=== PATIENT | male | born 1985 | race Caucasian/White ===

== ENCOUNTER 2016-11-08 09:54 | Emergency (ER) | payer MEDICARE, MEDICAID ==
[2016-11-08 10:11] VITALS: BP 131/71
--- NOTE | 2016-11-08 10:22 | UC ---
Respiratory Complaint HPI - HPI Summary HPI Summary: The patient comes in today for: 1. Cough: Onset: 5 weeks Palliative/provocative: He takes Mucinex which helps. Quality: Wheezy. Region: Lungs Severity: None. Time: Cough comes and goes. Associated symptoms: Asthma: Has not had. Fevers: None. Night sweats: Present Weight loss: None known Chest pain: None. Dyspnea: NOne. Previous lung disease: Last CXR: Unknown. He had a PPD done when he was in a alf in September which was normal. Cough: productive of yellow material. Rhinitis: Yellow Sinus pressure: None. * - History of Current Complaint Chief Complaint: UCGeneralIllness Stated Complaint: COUGH Time Seen by Provider: 11/08/16 10:03 Hx Obtained From: Patient - Allergies/Home Medications Allergies/Adverse Reactions: Allergies Allergy/AdvReac Type Severity Reaction Status Date / Time No Known Allergies Allergy Verified 11/08/16 10:11 PMH/Surg Hx/FS Hx/Imm Hx Previously Healthy: Yes Endocrine History Of: Denies: Diabetes, Thyroid Disease, Hyperthyroidism, Hypothyroidism, Dyslipidemia Cardiovascular History Of: Denies: Cardiac Disorders, Hypertension Respiratory History Of: Denies: COPD, Asthma, Bronchitis, Pneumonia, Pulmonary Embolism GI/ History Of: Denies: Gastroesophageal Reflux, Ulcer, Gastrointestinal Bleed, Gall Bladder Disease, Kidney Stones, Diverticulitis, Renal Disease, Urosepsis Neurological History Of: Denies: TIA, CVA, Dementia, Seizures, Migraine Psychological History Of: Reports: Anxiety, Depression Denies: Bipolar Disorder, Schizophrenia, Post Traumatic Stress Disorder Cancer History Of: Denies: Lung Cancer, Colorectal Cancer, Breast Cancer, Prostate Cancer, Cervical Cancer Other History Of: Negative For: HIV, Hepatitis B, Hepatitis C, Anticoagulant Therapy - Surgical History Surgical History: Yes Surgery Procedure, Year, and Place: appy - Family History Known Family History: Positive: Cardiac Disease, Hypertension - Social History Occupation: Unemployed Alcohol Use: None Substance Use Type: None Smoking Status (MU): Light Every Day Tobacco Smoker Type: Cigarettes Amount Used/How Often: 1/2 ppd--quit 2 days ago. Review of Systems Constitutional: Negative Skin: Negative Eyes: Negative ENT: Negative, Sore Throat Respiratory: Cough Cardiovascular: Negative Gastrointestinal: Negative Genitourinary: Negative All Other Systems Reviewed And Are Negative: Yes Physical Exam Triage Information Reviewed: Yes Appearance: Well-Appearing, No Pain Distress, Well-Nourished, Other: - He is coughing in the room and will have a prolonged cough at time, but brings up material. Vital Signs: Initial Vital Signs Temp 98.4 F 11/08/16 10:00 Pulse 80 11/08/16 10:00 Resp 18 11/08/16 10:00 BP 131/71 11/08/16 10:00 Pulse Ox 97 11/08/16 10:00 Vital Signs Reviewed: Yes Eyes: Positive: Conjunctiva Clear. Negative: Discharge ENT: Positive: Hearing grossly normal. Negative: Pharyngeal erythema, Nasal congestion, Nasal drainage, TM bulging, TM dull, TM red, Tonsillar swelling, Tonsillar exudate Dental: Negative: Gross Decay/Caries @, Dental Fracture @ Neck: Positive: Supple, Nontender, No Lymphadenopathy. Negative: Nuchal Rigidity Respiratory: Positive: Chest non-tender, Lungs clear, No respiratory distress, No accessory muscle use. Negative: Crackles, Rhonchi Cardiovascular: Positive: RRR, No Murmur Abdomen Description: Positive: Nontender, No Organomegaly, Soft. Negative: Distended, Guarding Musculoskeletal: Positive: Strength Intact, ROM Intact, No Edema Neurological: Positive: Alert, Muscle Tone Normal Psychological: Positive: Age Appropriate Behavior, Consolable Skin: Negative: rashes, breakdown UC Diagnostic Evaluation - Laboratory O2 Sat by Pulse Oximetry: 97 - Radiology Xray Interpretation: No Acute Changes Radiology Interpretation Completed By: Radiologist Respiratory Course/Dx - Differential Dx/Diagnosis Differential Diagnosis/HQI/PQRI: Bronchitis, Laryngitis, Sinusitis Provider Diagnoses: Cough, sinusitis, bronchitis Discharge - Discharge Plan Condition: Stable Disposition: HOME Patient Education Materials: Chronic Bronchitis (ED), Sinusitis (ED) Referrals: Luís Cano MD [Primary Care Provider] - 1 Week (Please see your primary care provider in a week to see how well you are doing. If you get worse, please be seen sooner in the ER or through us.)
--- NOTE | 2016-11-08 10:49 | RAD ---
INDICATION: Chronic cough. COMPARISON: There are no prior studies available for comparison. TECHNIQUE: Dual-energy PA and lateral views of the chest were obtained. FINDINGS: The heart is within normal limits in size. Mediastinal and hilar contours appear within normal limits. The lungs are clear. No pleural effusion is present. IMPRESSION: NO EVIDENCE FOR ACTIVE CARDIOPULMONARY DISEASE.
== END 2016-11-08 11:15 | disposition home or self-care (01) ==
LOC: UCEAST 09:54
DX: J32.9 Chronic sinusitis, unspecified (principal); R05 Cough; F41.9 Anxiety disorder, unspecified; F33.9 Major depressive disorder, recurrent, unspecified; F17.210 Nicotine dependence, cigarettes, uncomplicated; J40 Bronchitis, not specified as acute or chronic
CPT/HCPCS: 71020; 99202; G0463

== ENCOUNTER 2016-11-28 14:54 | Emergency (ER) | payer MEDICARE, MEDICAID ==
[2016-11-28 15:12] VITALS: BP 110/66
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
[2016-12-01 16:43] LABS: Rapid HIV INT CONT QC Line Present
[2016-12-01 16:44] LABS: Rapid HIV Kit Lot# F308002
== END 2016-11-28 16:01 | disposition home or self-care (01) ==
LOC: UCEAST 14:54
DX: S71.132A Puncture wound without foreign body, left thigh, initial encounter (principal); W46.1XXA Contact with contaminated hypodermic needle, initial encounter; Y93.9 Activity, unspecified; Y92.9 Unspecified place or not applicable; Z11.4 Encounter for screening for human immunodeficiency virus [HIV]; F41.8 Other specified anxiety disorders; F17.210 Nicotine dependence, cigarettes, uncomplicated
CPT/HCPCS: 36415; 86703; 86706; 86803; 87340; 99211; G0463

== ENCOUNTER 2018-04-02 13:44 | Emergency (ER) | payer MEDICAID, MEDICARE ==
--- NOTE | 2018-04-02 16:05 | ED ---
Psychiatric Complaint - HPI Summary HPI Summary: This patient is a 32 year old M presenting to [facility] with a chief complaint of a possible lung infection and anxiety. Pt states he got sick at the end of february and that illness has persistent since then. The patient rates the pain 1/10 in severity. Patient reports productive cough, rhinorrhea, chest congestion, and right knee pain. Patient denies SI and HI. Pt is anxious because he lost his wallet and phone with all the picture of his son in it. [facility] and that [facility]. Pt states he is homeless and has not drank or used drugs today. He has hx of mental health issues. - History Of Current Complaint Chief Complaint: EDMentalHealth Time Seen by Provider: 04/02/18 15:28 Hx Obtained From: Patient Onset/Duration: Still Present Timing: Constant Severity Initially: Moderate Severity Currently: Moderate Character: Depressed Aggravating Factor(s): Recent Stress Related History: Positive For: Prior Psychiatric Issues Has Suicidal: Denies: Thoughts, With A Plan Has Homicidal: Denies: Thoughts, With A Plan - Allergies/Home Medications Allergies/Adverse Reactions: Allergies Allergy/AdvReac Type Severity Reaction Status Date / Time No Known Allergies Allergy Verified 04/02/18 14:03 PMH/Surg Hx/FS Hx/Imm Hx Endocrine/Hematology History: Denies: Hx Anticoagulant Therapy, Hx Diabetes, Hx Thyroid Disease Cardiovascular History: Denies: Hx Hypertension Respiratory History: Denies: Hx Asthma, Hx Chronic Obstructive Pulmonary Disease (COPD), Hx Lung Cancer, Hx Pneumonia, Hx Pulmonary Embolism GI History: Denies: Hx Gall Bladder Disease, Hx Gastrointestinal Bleed, Hx Ulcer, Hx Urosepsis History: Denies: Hx Kidney Stones, Hx Renal Disease Neurological History: Denies: Hx Dementia, Hx Migraine, Hx Seizures, Hx Transient Ischemic Attacks (TIA) Psychiatric History: Reports: Hx Anxiety, Hx Depression Denies: Hx Schizophrenia, Hx Bipolar Disorder - Surgical History Surgery Procedure, Year, and Place: appy Infectious Disease History: No Infectious Disease History: Denies: Hx Clostridium Difficile, Hx Hepatitis, Hx Human Immunodeficiency Virus (HIV), Hx of Known/Suspected MRSA, Traveled Outside the [place] in Last 30 Days - Family History Known Family History: Positive: Cardiac Disease, Hypertension - Social History Alcohol Use: None Substance Use Type: Reports: None Smoking Status (MU): Light Every Day Tobacco Smoker Type: Cigars Amount Used/How Often: 1 cigar/day Review of Systems Negative: Fever Positive: Nasal Discharge Positive: Cough, Other - chest congestion Positive: Other - right knee pain Psychological: Other - NEGATIVE SI and HI All Other Systems Reviewed And Are Negative: Yes Physical Exam - Summary Physical Exam Summary: Appearance: Well appearing, no pain distress Skin: warm, dry, reflects adequate perfusion Head/face: normal Eyes: EOMI, RAND ENT: posterior pharynx mucus Neck: supple, non-tender Respiratory: CTA, harsh cough Cardiovascular: RRR, pulses symmetrical Abdomen: non-tender, soft Bowel Sounds: present Musculoskeletal: normal, strength/ROM intact Neuro: normal, sensory motor intact, A&Ox3 Triage Information Reviewed: Yes Vital Signs On Initial Exam: Initial Vitals Temp Pulse Resp BP Pulse Ox 98.4 F 85 16 138/86 96 04/02/18 13:58 04/02/18 13:58 04/02/18 13:58 04/02/18 13:58 04/02/18 13:58 Vital Signs Reviewed: Yes Diagnostics - Vital Signs Vital Signs Temp Pulse Resp BP Pulse Ox 04/02/18 13:58 98.4 F 85 16 138/86 96 - Laboratory Lab Statement: Any lab studies that have been ordered have been reviewed, and results considered in the medical decision making process. - Radiology CXR Xray Interpretation: No Acute Changes Radiology Interpretation Completed By: Radiologist - IMPRESSION: No active cardiopulmonary disease is noted. ED Physician has reviewed this report Course/Dx - Course Course Of Treatment: Homeless gentleman with history of URI symptoms and also anxiety. No alcohol in his system. He had no suicidal or homicidal ideation. A crisis evaluation was performed and outpatient therapies were recommended. He was given all appropriate paperwork by crisis. He is also treated for URI/ sinusitis and will be provided emergency fill prescriptions for albuterol, Zithromax and Vistaril for his anxiety. - Differential Dx/Clinical Impression Differential Diagnosis/HQI/PQRI: Positive: Depression, Suicidal Ideation, Suicidal Gesture, Other - URI, sinusitis, pneumonia Provider Diagnosis: Depression, Anxiety, Sinusitis Discharge - Sign-Out/Discharge Documenting (check all that apply): Patient Departure - discharge - Discharge Plan Condition: Improved Disposition: HOME Prescriptions: Albuterol HFA INHALER* [Ventolin HFA Inhaler*] 1 - 2 puff INH Q4H PRN #1 mdi PRN Reason: cough/short of breath Azithromycin TAB* [Zithromax TAB (Z-DAFNE) 250 mg #6 tabs] 2 tab PO .TODAY, THEN 1 DAILY #1 dafne hydrOXYzine pamoate [Vistaril] 50 mg PO TID PRN #30 capsule PRN Reason: Anxiety Patient Education Materials: Sinusitis (ED), Anxiety (ED) Forms: *Work Release Referrals: [facility] [Outside] Yousuf Perez MD [Primary Care Provider] - Additional Instructions: Call your doctor first thing in the morning to schedule follow-up for your illness. Follow[facility]up with [facility] as per crisis evaluation recommendation. Return with fever, difficulty breathing, worse, new symptoms or other concerns. - Billing Disposition and Condition Condition: IMPROVED Disposition: Home - Attestation Statements Document Initiated by Calliibe: Yes Documenting Scribe: Isaac Rdz Provider For Whom Calliibe is Documenting (Include Credential): Stephon Rizzo MD Scribe Attestation: Isaac Matt , scribed for Stephon Rizzo MD on 04/02/18 at 1803. Scribe Documentation Reviewed: Yes Provider Attestation: The documentation as recorded by the Isaac walden accurately reflects the service I personally performed and the decisions made by me, Stephon Rizzo MD
[2018-04-02] MEDS ORDERED: Albuterol/Ipratropium NEB.SOL* Albuterol 2.5 MG/Ipratropium 0.5 MG 3 ML INH ONE (16:11)
[2018-04-02] MEDS ORDERED: LORazepam TAB(*) 1 MG PO ONE (16:11)
--- NOTE | 2018-04-02 17:20 | RAD ---
Indication: Cough. 2 views of the chest including dual energy PA views are reviewed and compared to previous exam dated November 08, 2016. No mediastinal shift is noted. Heart is of normal size and configuration. Lung sharma appear clear. No pleural fluid, pneumonia or pneumothorax is noted. The bony structures are grossly unremarkable. No changes noted since prior exam. IMPRESSION: No active cardiopulmonary disease is noted.
[2018-04-02 18:52] VITALS: BP 148/78
== END 2018-04-02 18:00 | disposition home or self-care (01) ==
LOC: ED 13:44
DX: F32.9 Major depressive disorder, single episode, unspecified (principal); F41.9 Anxiety disorder, unspecified; J32.9 Chronic sinusitis, unspecified; F17.290 Nicotine dependence, other tobacco product, uncomplicated
CPT/HCPCS: 71046; 99283; A9270-GY

== ENCOUNTER 2018-06-18 17:44 | Emergency (ER) | payer SELFPAY ==
--- NOTE | 2018-06-18 18:14 | ED ---
Skin Complaint - HPI Summary HPI Summary: The pt is a 32 y/o male presenting to [facility] c/o a large fluid pocket on the sacral region spreading to the lower R back since 3 days ago. He notes hardening and redness at the site, hot and cold sweats, palpitations, and difficulty sitting. He denies constipation. He notes pain rated 7/10 in severity. Home Medications Medication Instructions Recorded Confirmed Type Albuterol HFA INHALER* [Ventolin 1 - 2 puff INH Q4H PRN #1 mdi 04/02/18 Rx HFA Inhaler*] Azithromycin TAB* [Zithromax TAB 2 tab PO .TODAY, THEN 1 DAILY #1 04/02/18 Rx (Z-DAFNE) 250 mg #6 tabs] dafne hydrOXYzine pamoate [Vistaril] 50 mg PO TID PRN #30 capsule 04/02/18 Rx - History of Current Complaint Chief Complaint: EDGeneral Time Seen by Provider: 06/18/18 18:07 Stated Complaint: LUMP ON LOWER BACK Hx Obtained From: Patient Onset/Duration: Started Days Ago - 3 days, Still Present, Worse Since - Today Onset Severity: Moderate Current Severity: Moderate Pain Intensity: 7 Pain Scale Used: 0-10 Numeric Skin Location: Other: - sacral region Aggravating Symptom(s): Nothing Alleviating Symptom(s): Nothing - Allergy/Home Medications Allergies/Adverse Reactions: Allergies Allergy/AdvReac Type Severity Reaction Status Date / Time No Known Allergies Allergy Verified 04/02/18 14:03 PMH/Surg Hx/FS Hx/Imm Hx Previously Healthy: No Endocrine/Hematology History: Denies: Hx Anticoagulant Therapy, Hx Diabetes, Hx Thyroid Disease Cardiovascular History: Denies: Hx Hypertension Respiratory History: Denies: Hx Asthma, Hx Chronic Obstructive Pulmonary Disease (COPD), Hx Lung Cancer, Hx Pneumonia, Hx Pulmonary Embolism GI History: Denies: Hx Gall Bladder Disease, Hx Gastrointestinal Bleed, Hx Ulcer, Hx Urosepsis History: Denies: Hx Kidney Stones, Hx Renal Disease Neurological History: Denies: Hx Dementia, Hx Migraine, Hx Seizures, Hx Transient Ischemic Attacks (TIA) Psychiatric History: Reports: Hx Anxiety, Hx Depression Denies: Hx Schizophrenia, Hx Bipolar Disorder - Cancer History Cancer Type, Location and Year: None reported - Surgical History Surgery Procedure, Year, and Place: Appendectomy Infectious Disease History: No Infectious Disease History: Denies: Hx Clostridium Difficile, Hx Hepatitis, Hx Human Immunodeficiency Virus (HIV), Hx of Known/Suspected MRSA, Traveled Outside the [place] in Last 30 Days - Family History Known Family History: Positive: Cardiac Disease, Hypertension - Social History Occupation: Unemployed Lives: With Family Alcohol Use: None Substance Use Type: Reports: None Substance Use Comment - Amount & Last Used: Crack cocaine Smoking Status (MU): Light Every Day Tobacco Smoker Type: Cigars Amount Used/How Often: 1 cigar/day Review of Systems Constitutional: Other - Positive: Difficulty sitting Positive: Skin Diaphoresis - [place] cold sweats Positive: Palpitations Gastrointestinal: Negative - Constipation Positive: Other - large fluid pocket on the sacral region spreading to the lower R back, redness and swelling All Other Systems Reviewed And Are Negative: Yes Physical Exam - Summary Physical Exam Summary: Appearance: The patient is well-nourished in no acute distress and in no acute pain. Skin: There is a R sided pilonidal cyst. It is indurated, erythematous, tender and without flactuance. HEENT: The head is normocephalic and atraumatic. The pupils are equal and reactive. The conjunctivae are clear and without drainage. Nares are patent and without drainage. Mouth reveals moist mucous membranes and the throat is without erythema and exudate. The external ears are intact. The ear canals are patent and without drainage. The tympanic membranes are intact. Neck: The neck is supple with full range of motion and non-tender. There are no carotid bruits. There is no neck vein distension. Respiratory: Chest is non-tender. Lungs are clear to auscultation and breath sounds are symmetrical and equal. Cardiovascular: Heart is regular rate and rhythm. There is no murmur or rub auscultated. There is no peripheral edema and pulses are symmetrical and equal. Abdomen: The abdomen is soft and non-tender. There are normal bowel sounds heard in all four quadrants and there is no organomegaly palpated. Musculoskeletal: There is no back tenderness noted. Extremities are non-tender with full range of motion. There is good capillary refill. There is no peripheral edema or calf tenderness elicited. Neurological: Patient is alert and oriented to person, place and time. The patient has symmetrical motor strength in all four extremities. Cranial nerves are grossly intact. Deep tendon reflexes are symmetrical and equal in all four extremities. Psychiatric: The patient has an appropriate affect and does not exhibit any anxiety or depression. Triage Information Reviewed: Yes Vital Signs On Initial Exam: Initial Vitals Temp Pulse Resp BP Pulse Ox 98.0 F 114 18 132/87 99 06/18/18 17:55 06/18/18 17:55 06/18/18 17:55 06/18/18 17:55 06/18/18 17:55 Vital Signs Reviewed: Yes Procedures - Incision and Drainage Right Buttocks Anesthesia: Lidocaine Instrument(s): Scalpel Packing: Gauze - 07/24" [employer] [facility] - Vital Signs Vital Signs Temp Pulse Resp BP Pulse Ox 06/18/18 17:55 98.0 F 114 18 132/87 99 - Laboratory Lab Statement: Any lab studies that have been ordered have been reviewed, and results considered in the medical decision making process. Course/Dx - Course Course Of Treatment: Mr. Hernández presented to the emergency department with several days of a painful area on his right buttock. He can no longer sit comfortably or move very well. On evaluation he was noted to be stable vitals, nontoxic in appearance but uncomfortable. He clearly had a pilonidal abscess on the right and this was drained of about 7 cc of thick discharge which was sent to the lab. A small amount of packing was placed. He has a great deal of concern about the cost and I recommended that packing would probably fall out and that was okay or could be pulled out in a day or 2. If he starts getting worse he can be seen again. - Diagnoses Provider Diagnoses: Pilonidal abscess Discharge - Sign-Out/Discharge Documenting (check all that apply): Patient Departure - DC - Discharge Plan Condition: Improved Disposition: HOME Prescriptions: Clindamycin Cap(NF) [Clindamycin Cap 300 mg Cap(NF)] 300 mg PO TID #12 cap Clindamycin Cap(NF) [Clindamycin Cap 300 mg Cap(NF)] 300 mg PO TID #12 cap HYDROcodone/ACETAMIN 5-325 MG* [Chappells 5-325 TAB*] 1 tab PO Q6H PRN #20 tab MDD 4 PRN Reason: Pain HYDROcodone/ACETAMIN 5-325 MG* [[place]appells 5-325 TAB*] 1 tab PO Q6H PRN #20 tab MDD 4 PRN Reason: Pain Patient Education Materials: Pilonidal Cyst (ED) Forms: *Work Release Referrals: Yousuf Perez MD [Primary Care Provider] - Additional Instructions: The packing can be removed in 1-2 days Follow up with your PCP in 2 days Return to ED for any new or worsening symptoms - Billing Disposition and Condition Condition: IMPROVED Disposition: Home - Attestation Statements Document Initiated by Calliibwilliam: Yes Documenting Scribe: Ashia Alcantara Provider For Whom Aida is Documenting (Include Credential): Dr. Hugh Salas MD Scribe Attestation: Ashia Matt , scribed for Dr. Hugh Salas MD on 06/18/18 at 2042. Scribe Documentation Reviewed: Yes Provider Attestation: The documentation as recorded by the Ashia walden accurately reflects the service I personally performed and the decisions made by me, Dr. Hugh Salas MD Status of Scribe Document: Viewed
[2018-06-18] MEDS ORDERED: Ibuprofen TAB* 600 MG PO ONE (18:26)
[2018-06-18 20:39] VITALS: BP 146/80
--- NOTE | 2018-06-19 16:53 | ED ---
Progress - Progress Note Progress Note: Patient's wound cultures positive for MRSA and staph aureus. Patient was placed on clindamycin. This treatment is appropriate this time. Final results pending. Course/Dx - Course Course Of Treatment: Mr. Hernández presented to the emergency department with several days of a painful area on his right buttock. He can no longer sit comfortably or move very well. On evaluation he was noted to be stable vitals, nontoxic in appearance but uncomfortable. He clearly had a pilonidal abscess on the right and this was drained of about 7 cc of thick discharge which was sent to the lab. A small amount of packing was placed. He has a great deal of concern about the cost and I recommended that packing would probably fall out and that was okay or could be pulled out in a day or 2. If he starts getting worse he can be seen again. - Diagnoses Provider Diagnoses: Pilonidal abscess Discharge - Sign-Out/Discharge Documenting (check all that apply): Post-Discharge Follow Up - Discharge Plan Condition: Improved Disposition: HOME Prescriptions: Clindamycin Cap(NF) [Clindamycin Cap 300 mg Cap(NF)] 300 mg PO TID #12 cap Clindamycin Cap(NF) [Clindamycin Cap 300 mg Cap(NF)] 300 mg PO TID #12 cap HYDROcodone/ACETAMIN 5-325 MG* [[place] 5-325 TAB*] 1 tab PO Q6H PRN #20 tab MDD 4 PRN Reason: Pain HYDROcodone/ACETAMIN 5-325 MG* [[place] 5-325 TAB*] 1 tab PO Q6H PRN #20 tab MDD 4 PRN Reason: Pain Patient Education Materials: Pilonidal Cyst (ED) Forms: *Work Release Referrals: Yousuf Perez MD [Primary Care Provider] - Additional Instructions: The packing can be removed in 1-2 days Follow up with your PCP in 2 days Return to ED for any new or worsening symptoms - Billing Disposition and Condition Condition: IMPROVED Disposition: Home
--- NOTE | 2018-06-21 05:50 | PN ---
Progress Note - Progress Note Date of Service: 07/18/18 Note: Pt. seen in ED 06/18 for abscess. Was placed on Clindamycin after I and D. Final wound culture today is growing MRSA susceptible to clinda. No change in treatment needed at this time.
== END 2018-06-18 20:39 | disposition home or self-care (01) ==
LOC: ED 17:44
DX: L05.01 Pilonidal cyst with abscess (principal); B95.62 Methicillin resistant Staphylococcus aureus infection as the cause of diseases classified elsewhere; F17.290 Nicotine dependence, other tobacco product, uncomplicated
CPT/HCPCS: 10080; 87070; 87077; 87186; 87205; 87640; 87641; 99282; A9270-GY

== ENCOUNTER 2018-06-27 16:44 | Emergency (ER) | payer SELFPAY ==
[2018-06-27] MEDS ORDERED: Clindamycin 600 MG IVPREMIX(* 600 MG/50 ML SDV IV ONE (18:06)
[2018-06-27] MEDS ORDERED: Ketorolac INJ* 30 MG/ML 1 ML VIAL IV PUSH ONE (18:26)
[2018-06-27 18:30] LABS: ABS Basophils 0.1 10^3/ul (0-0.2); ABS Eosinophils 0.1 10^3/ul (0-0.6); ABS Lymphocytes 1.4 10^3/ul (1.0-4.8); ABS Monocytes 0.6 10^3/ul (0-0.8); ABS Neutrophils 10.2 10^3/ul (1.5-7.7); ABS Nucleated RBC 0 10^3/ul; Hematocrit 44 % (42-52); Hemoglobin 14.8 g/dl (14.0-18.0); Lymphocyte % 11.1 %; Mean Corpuscular HGB Conc 34 g/dl (31-36); Mean Corpuscular Hemoglobin 29 pg (27-31); Mean Corpuscular Volume 87 fL (80-94); Mean Platelet Volume 8.8 fL (7.4-10.4); Nucleated Red Blood Cells % 0; Platelet Count 246 10^3/ul (150-450); Red Blood Count 5.03 10^6/ul (4.00-5.40); Red Cell Distribution Width 14 % (10.5-15); White Blood Count 12.4 10^3/ul (3.5-10.8)
[2018-06-27 18:38] LABS: INR 0.97 (0.77-1.02)
[2018-06-27 18:46] LABS: EGFR Non-African American 108.1 (>60)
[2018-06-27] MEDS ORDERED: PREP PO ONE (19:56)
[2018-06-27] MEDS ORDERED: I buprofen 600 MG #6 TAB PREPK 600 MG TAB PO ONE (19:56)
[2018-06-27] MEDS ORDERED: [UNRECOGNIZED DRUG - OTHER] PO ONE (19:56)
--- NOTE | 2018-06-27 20:41 | ED ---
Skin Complaint - HPI Summary HPI Summary: Pt presents w/ a second gluteal infection, this time on Lt cheek. Painful to sleep on it. Feels tired but denies raz fever, chills, nausea, vomiting, diarrhea. Has noticed smaller scabbed bumps in the area as well - moist, oozing but no raz drainage. Denies radiating sx into LE's. Pt was also seen on 06/18 for a Rt gluteal abscess. This was incised and drained and packed. Cx revealed MRSA and Staph aureus sensitive to clindamycin which was rx'd for the pt however he has not taken this as he never went to pharmacy. He was given an urgent RX form. He struggles with anxiety which may have impeded his follow through on picking up his rx. GF is here w/him today. Reports he's homeless and lives w/ her. She is panicked about his dx of MRSA as she reports she had this many years ago and is worried she gave it to him and he will leave her. Pt is concerned about learning he has MRSA but has not expressed that he will leave GF as a result. Pt's GF was asked to refrain from projecting her anxiety onto pt and she agrees. - History of Current Complaint Chief Complaint: EDRashSkinAbscess Time Seen by Provider: 06/27/18 17:35 Stated Complaint: ABSCESS Hx Obtained From: Patient Pain Intensity: 8 - Allergy/Home Medications Allergies/Adverse Reactions: Allergies Allergy/AdvReac Type Severity Reaction Status Date / Time No Known Allergies Allergy Verified 06/27/18 16:49 PMH/Surg Hx/FS Hx/Imm Hx Endocrine/Hematology History: Denies: Hx Anticoagulant Therapy, Hx Diabetes, Hx Thyroid Disease Cardiovascular History: Denies: Hx Hypertension Respiratory History: Denies: Hx Asthma, Hx Chronic Obstructive Pulmonary Disease (COPD), Hx Lung Cancer, Hx Pneumonia, Hx Pulmonary Embolism GI History: Denies: Hx Gall Bladder Disease, Hx Gastrointestinal Bleed, Hx Ulcer, Hx Urosepsis History: Denies: Hx Kidney Stones, Hx Renal Disease Neurological History: Denies: Hx Dementia, Hx Migraine, Hx Seizures, Hx Transient Ischemic Attacks (TIA) Psychiatric History: Reports: Hx Anxiety, Hx Depression Denies: Hx Schizophrenia, Hx Bipolar Disorder - Cancer History Cancer Type, Location and Year: None reported - Surgical History Surgery Procedure, Year, and Place: Appendectomy Infectious Disease History: No Infectious Disease History: Reports: Hx of Known/Suspected MRSA Denies: Hx Clostridium Difficile, Hx Hepatitis, Hx Human Immunodeficiency Virus (HIV), Traveled Outside the [place] in Last 30 Days - Family History Known Family History: Positive: Cardiac Disease, Hypertension - Social History Occupation: Employed Full-time Lives: Dormitory/Roommates - technicaly homeless but lives w/ current GF Alcohol Use: Rare Substance Use Type: Reports: None Substance Use Comment - Amount & Last Used: hx Crack cocaine Smoking Status (MU): Heavy Every Day Tobacco Smoker Type: Cigars Amount Used/How Often: 1 cigar/day Review of Systems Positive: Fatigue. Negative: Fever, Chills Eyes: Negative Negative: Chest Pain Negative: Shortness Of Breath Gastrointestinal: Negative Positive: no symptoms reported Musculoskeletal: Negative Positive: Rash Neurological: Negative Positive: Anxious All Other Systems Reviewed And Are Negative: Yes Physical Exam Triage Information Reviewed: Yes Vital Signs On Initial Exam: Initial Vitals Temp Pulse Resp BP Pulse Ox 97.3 F 114 16 129/87 100 06/27/18 16:47 06/27/18 16:47 06/27/18 16:47 06/27/18 16:47 06/27/18 16:47 Vital Signs Reviewed: Yes Appearance: Positive: Well-Nourished - clothed appropriately; lacking hygiene to a mild degree - subtly disheveled, Pain Distress - appears to be in mild to moderate distress which may be a combination of pain/anxiety Skin: Positive: Warm, Skin Color Reflects Adequate Perfusion - 4cm round area of indurated, tender, oozing scabbed tissue over Lt gluteal region w/ pustules - no bleeding, no drainage w/ pressure- appears isolated to this area; Rt previously opened area appears to be healed - small linear pink scar from previous I&D - no erythema, no fever to touch, skin clear, NTTP Eyes: Positive: EOMI, Conjunctiva Clear ENT: Positive: Pharynx normal - mucosa moist Respiratory/Lung Sounds: Positive: Breath Sounds Present Cardiovascular: Positive: Normal, S1, S2. Negative: Murmur, Rub, Leg Edema Left , Leg Edema Right Musculoskeletal: Positive: Normal, Strength/ROM Intact - lumbar spine and LE's WNL Neurological: Positive: Normal, Sensory/Motor Intact, Alert, Oriented to Person Place, Time, CN Intact II-III Psychiatric: Positive: Anxious - but consolable, polite, cooperative - [place] Coma Scale Best Eye Response: 4 - Spontaneous Best Motor Response: 6 - Obeys Commands Best Verbal Response: 5 - Oriented Coma Scale Total: 15 Procedures - Incision and Drainage Left Buttocks Anesthesia: Local, Lidocaine - 1% Instrument(s): Scalpel - #11 - minimal purulent drainage despite hemostat investigation - loculated, firm/indurated - minimal blood loss; irrigated w/ sterile saline Packing: Gauze - 1/4" plain (1cm) - difficult to pack d/t lack of pocket - tissue still firm and intact; covered with AB dressing - pt tolerated well Diagnostics - Vital Signs Vital Signs Temp Pulse Resp BP Pulse Ox 06/27/18 18:06 98.5 F 80 16 06/27/18 16:47 97.3 F 114 16 129/87 100 - Laboratory Lab Results: Lab Results 06/27/18 06/27/18 06/27/18 Range/Units 18:22 18:22 18:22 WBC 12.4 H (3.5-10.8) 10^3/ul RBC 5.03 (4.00-5.40) 10^6/ul Hgb 14.8 (14.0-18.0) g/dl Hct 44 (42-52) % MCV 87 (80-94) fL MCH 29 (27-31) pg MCHC 34 (31-36) g/dl RDW 14 (10.5-15) % Plt Count 246 (150-450) 10^3/ul MPV 8.8 (7.4-10.4) fL Neut % (Auto) 82.3 % Lymph % (Auto) 11.1 % [place] % (Auto) 5.1 % Eos % (Auto) 1.0 % Baso % (Auto) 0.5 % Absolute Neuts (auto) 10.2 H (1.5-7.7) 10^3/ul Absolute Lymphs (auto) 1.4 (1.0-4.8) 10^3/ul Absolute Monos (auto) 0.6 (0-0.8) 10^3/ul Absolute Eos (auto) 0.1 (0-0.6) 10^3/ul Absolute Basos (auto) 0.1 (0-0.2) 10^3/ul Absolute Nucleated RBC 0 10^3/ul Nucleated RBC % 0 INR (Anticoag Therapy) 0.97 (0.77-1.02) APTT 32.0 (26.0-36.3) seconds Sodium 138 (135-145) mmol/L Potassium 3.9 (3.5-5.0) mmol/L Chloride 103 (101-111) mmol/L Carbon Dioxide 29 (22-32) mmol/L Anion Gap 6 (2-11) mmol/L BUN 9 (6-24) mg/dL Creatinine 0.83 (0.67-1.17) mg/dL Est GFR ( Amer) 130.8 (>60) Est GFR (Non-Af Amer) 108.1 (>60) BUN/Creatinine Ratio 10.8 (8-20) Glucose 87 (70-100) mg/dL Lactic Acid (0.5-2.0) mmol/L Calcium 9.3 (8.6-10.3) mg/dL Total Bilirubin 0.50 (0.2-1.0) mg/dL AST 10 L (13-39) U/L ALT 9 (7-52) U/L Alkaline Phosphatase 55 (34-104) U/L C-Reactive Protein 12.92 H (<8.01) mg/L Total Protein 6.9 (6.4-8.9) g/dL Albumin 4.3 (3.2-5.2) g/dL Globulin 2.6 (2-4) g/dL Albumin/Globulin Ratio 1.7 (1-3) 06/27/18 Range/Units 18:22 WBC (3.5-10.8) 10^3/ul RBC (4.00-5.40) 10^6/ul Hgb (14.0-18.0) g/dl Hct (42-52) % MCV (80-94) fL MCH (27-31) pg MCHC (31-36) g/dl RDW (10.5-15) % Plt Count (150-450) 10^3/ul MPV (7.4-10.4) fL Neut % (Auto) % Lymph % (Auto) % [place] % (Auto) % Eos % (Auto) % Baso % (Auto) % Absolute Neuts (auto) (1.5-7.7) 10^3/ul Absolute Lymphs (auto) (1.0-4.8) 10^3/ul Absolute Monos (auto) (0-0.8) 10^3/ul Absolute Eos (auto) (0-0.6) 10^3/ul Absolute Basos (auto) (0-0.2) 10^3/ul Absolute Nucleated RBC 10^3/ul Nucleated RBC % INR (Anticoag Therapy) (0.77-1.02) APTT (26.0-36.3) seconds Sodium (135-145) mmol/L Potassium (3.5-5.0) mmol/L Chloride (101-111) mmol/L Carbon Dioxide (22-32) mmol/L Anion Gap (2-11) mmol/L BUN (6-24) mg/dL Creatinine (0.67-1.17) mg/dL Est GFR ( Amer) (>60) Est GFR (Non-Af Amer) (>60) BUN/Creatinine Ratio (8-20) Glucose (70-100) mg/dL Lactic Acid 1.2 (0.5-2.0) mmol/L Calcium (8.6-10.3) mg/dL Total Bilirubin (0.2-1.0) mg/dL AST (13-39) U/L ALT (7-52) U/L Alkaline Phosphatase (34-104) U/L C-Reactive Protein (<8.01) mg/L Total Protein (6.4-8.9) g/dL Albumin (3.2-5.2) g/dL Globulin (2-4) g/dL Albumin/Globulin Ratio (1-3) Result Diagrams: 06/27/18 18:22 06/27/18 18:22 Lab Statement: Any lab studies that have been ordered have been reviewed, and results considered in the medical decision making process. Re-Evaluation - Re-Evaluation First Eval Change: Improved Course/Dx - Course Course Of Treatment: Explained importance of taking anbx - given 1st dose here tonight via IV given his labs and hx. Given another urgent RX form and explained [facility] pharmacy is on bus route - also that he or anyone else could pick these meds up for him if logistics were an issue. He voices understanding and agrees w/ plan - voices understanding the risks of not taking clindamycin and following up as directed. Labs reveal what appears to be mild to moderate infection which I believe based on his clinical presentation (ie. does not meet SIRS Criteria, looks well considering) may be tx'd outpt as long as has close f/u which he arees to f/u w/ Jordy Wong. He was also adamant early on in visit that he had to work tomorrow no matter what - does not want to lose his job as he's "homeless" and trying to rebuild. No SI or HI expressed throughout course of care. - Diagnoses Provider Diagnoses: Buttock wound, MRSA (methicillin resistant staph aureus) culture positive Discharge - Sign-Out/Discharge Documenting (check all that apply): Patient Departure - Discharge Plan Condition: Stable Disposition: HOME Prescriptions: Clindamycin HCl 300 mg PO TID #30 capsule HYDROcodone/ACETAMIN 5-325 MG* [[place] 5-325 TAB*] 1 tab PO Q6H PRN #20 tab MDD 4 PRN Reason: Pain Ibuprofen TAB* [Motrin TAB* 600 MG] 600 mg PO Q6H PRN #20 tab PRN Reason: Pain Patient Education Materials: MRSA (Methicillin-Resistant Staphylococcus Aureus ) (ED), Abscess (ED), Incision and Drainage (ED) Referrals: [facility] [Outside] Additional Instructions: Keep area clean and covered to allow dressing to catch drainage After 2 days, you may remove packing or it may fall out on its own Wash this area in the shower daily with soap and water - rinse well and pat dry then cover with fresh dry gauze dressing to catch additional drainage, aid in healing Follow-up with [facility] on Friday - call Friday to schedule an appointment. Complete antibiotics as directed - you were given a small starter pack here but need to get additional medications from the pharmacy to prevent spread or worsening of infection. Take pain medications as directed as well. All medications have been sent to [facility] - take your green sheet for free medication fill when you go - give to pharmacy. *IF YOU DEVELOP FEVER, CHILLS, NAUSEA, VOMITING, DIARRHEA, WORSENING OF YOUR WOUND SYMPTOMS, RETURN TO THE ED - Billing Disposition and Condition Condition: STABLE Disposition: Home
[2018-06-27 20:47] VITALS: BP 104/83
== END 2018-06-27 20:50 | disposition home or self-care (01) ==
LOC: ED 16:44
DX: S31.819A Unspecified open wound of right buttock, initial encounter (principal); B95.62 Methicillin resistant Staphylococcus aureus infection as the cause of diseases classified elsewhere; X58.XXXA Exposure to other specified factors, initial encounter; Y92.9 Unspecified place or not applicable; F17.290 Nicotine dependence, other tobacco product, uncomplicated
CPT/HCPCS: 10060; 36415; 80053; 83605; 85025; 85610; 85730; 86140; 87040; 96361; 96374; 99282; A9270-GY; J1885

== ENCOUNTER 2018-12-05 19:16 | Emergency (ER) | payer SELFPAY ==
[2018-12-05] MEDS ORDERED: Penicillin VK TAB* 250 MG PO ONE (19:41)
[2018-12-05] MEDS ORDERED: Ibuprofen TAB* 600 MG PO ONE (19:41)
--- NOTE | 2018-12-05 19:41 | ED ---
Throat Pain/Nasal Congestion - HPI Summary HPI Summary: 32 year old male presents with dental pain for the past week. He states that he cracked his tooth a year ago but has been gradually loosing parts of his teeth over the past week. He has been having increasing pain. no fever. no chest pain. has had pain into his jaw and did have swelling there yesterday that has resolved. states has felt short of breath at times but not currently. pain is worst with hot and cold items. - History of Current Complaint Chief Complaint: EDDentalPain Time Seen by Provider: 12/05/18 19:29 - Allergies/Home Medications Allergies/Adverse Reactions: Allergies Allergy/AdvReac Type Severity Reaction Status Date / Time No Known Allergies Allergy Verified 06/27/18 16:49 PMH/Surg Hx/FS Hx/Imm Hx Endocrine/Hematology History: Denies: Hx Anticoagulant Therapy, Hx Diabetes, Hx Thyroid Disease Cardiovascular History: Denies: Hx Hypertension Respiratory History: Denies: Hx Asthma, Hx Chronic Obstructive Pulmonary Disease (COPD), Hx Lung Cancer, Hx Pneumonia, Hx Pulmonary Embolism GI History: Denies: Hx Gall Bladder Disease, Hx Gastrointestinal Bleed, Hx Ulcer, Hx Urosepsis History: Denies: Hx Kidney Stones, Hx Renal Disease Neurological History: Denies: Hx Dementia, Hx Migraine, Hx Seizures, Hx Transient Ischemic Attacks (TIA) Psychiatric History: Reports: Hx Anxiety, Hx Depression Denies: Hx Schizophrenia, Hx Bipolar Disorder - Cancer History Cancer Type, Location and Year: None reported - Surgical History Surgery Procedure, Year, and Place: Appendectomy Infectious Disease History: Yes Infectious Disease History: Reports: Hx of Known/Suspected MRSA Denies: Hx Clostridium Difficile, Hx Hepatitis, Hx Human Immunodeficiency Virus (HIV), Traveled Outside the [place] in Last 30 Days - Family History Known Family History: Positive: Cardiac Disease, Hypertension - Social History Alcohol Use: Rare Substance Use Type: Reports: None Substance Use Comment - Amount & Last Used: hx Crack cocaine Smoking Status (MU): Heavy Every Day Tobacco Smoker Type: Cigars Amount Used/How Often: 1 cigar/day Review of Systems Negative: Fever Positive: Dental Pain Negative: Chest Pain Negative: Shortness Of Breath All Other Systems Reviewed And Are Negative: Yes Physical Exam Triage Information Reviewed: Yes Vital Signs On Initial Exam: Initial Vitals Temp Pulse Resp BP Pulse Ox 99.7 F 85 16 108/77 100 12/05/18 19:19 12/05/18 19:19 12/05/18 19:19 12/05/18 19:19 12/05/18 19:19 Vital Signs Reviewed: Yes Appearance: Positive: Well-Appearing Skin: Positive: Warm, Dry Head/Face: Positive: Normal Head/Face Inspection Eyes: Positive: Normal, EOMI, RAND, Conjunctiva Clear Dental: Positive: Dental Fracture @ - 29 Neck: Positive: Supple, Nontender, No Lymphadenopathy Respiratory/Lung Sounds: Positive: Clear to Auscultation, Breath Sounds Present Cardiovascular: Positive: Normal, RRR Abdomen Description: Positive: Nontender, Soft Bowel Sounds: Positive: Present Musculoskeletal: Positive: Normal Neurological: Positive: Normal Psychiatric: Positive: Normal Diagnostics - Vital Signs Vital Signs Temp Pulse Resp BP Pulse Ox 12/05/18 19:19 99.7 F 85 16 108/77 100 - Laboratory Lab Statement: Any lab studies that have been ordered have been reviewed, and results considered in the medical decision making process. EENT Course/Dx - Course Course Of Treatment: 32 year old male presents with dental pain for the past week. He states that he cracked his tooth a year ago but has been gradually loosing parts of his teeth over the past week. He has been having increasing pain. no fever. no chest pain. has had pain into his jaw and did have swelling there yesterday that has resolved. states has felt short of breath at times but not currently. pain is worst with hot and cold items. on exam has fracture tooth at tooth 29. has some erythema surrounding the tooth. nontender submandibular area. will place on PCN. gave short course of pain medication as patient is in extreme pain. told needs to est care with dentist. patient understand and agrees with plan. - Differential Diagnoses Differential Diagnoses: Dental Abscess, Dental Caries, Gingivitis - Diagnoses Provider Diagnoses: Dental infection Discharge - Sign-Out/Discharge Documenting (check all that apply): Patient Departure Patient Received Moderate/Deep Sedation with Procedure: No - Discharge Plan Condition: Good Disposition: HOME Prescriptions: Ibuprofen TAB* [Motrin TAB* 600 MG] 600 mg PO Q6H PRN #20 tab PRN Reason: Pain Penicillin VK TAB* [Penicillin VK 250 mg Tab*] 500 mg PO QID #27 tab traMADol TAB* [Ultram*] 50 mg PO Q12H PRN #4 tab MDD 2 PRN Reason: Pain Patient Education Materials: Toothache (ED) Referrals: Yousuf Perez MD [Primary Care Provider] - Additional Instructions: Take antibiotics: 4 times a day for 7 days, first dose given in ED Use ibuprofen every 6 hours and tramadol every 12 hours as needed for break through pain at night Avoid hard, crunchy food until seen by dentist Follow up with dentist as soon as possible Return to ED if develop any new or worsening symptoms - Billing Disposition and Condition Condition: GOOD Disposition: Home Images - Images Dental: 1 - fracture tooth
[2018-12-05 20:13] VITALS: BP 0/0
== END 2018-12-05 20:12 | disposition home or self-care (01) ==
LOC: ED 19:16
DX: K04.7 Periapical abscess without sinus (principal); F17.290 Nicotine dependence, other tobacco product, uncomplicated
CPT/HCPCS: 99283; A9270-GY

== ENCOUNTER 2019-04-29 13:45 | Emergency (ER) | payer SELFPAY ==
[2019-04-29 15:58] VITALS: BP 117/89
--- NOTE | 2019-04-30 12:31 | ED ---
Lower Extremity - HPI Summary HPI Summary: Patient is a 33-year-old homeless gentleman presenting to the ED with right knee pain. He states this is chronic and he has been having pain for the past several years. He has been taking ibuprofen and Tylenol without relief. He states he has no health insurance and is unable to see an orthopedic physician. He states he is here today as he has "group" and needed a doctors note to get out of it. He states he did not feel like going today because of his knee pain. Denies other sxs. Hx of anxiety. Denies this currently. Ambulating well , however knee pain has been worse since he is homeless and walking everywhere. Denies f/s/c. Denies n/t. States upset about the pharmaceutical companies not allowing physicians to prescribe oxy's for pain and he is wanting to go to pain management. He has not f/u with his PCP. - History of Current Complaint Chief Complaint: EDPrescriptionNeeded Stated Complaint: GENERAL ILLNESS/KNEE PAIN ER PT Time Seen by Provider: 04/29/19 15:19 Hx Obtained From: Patient Onset of Pain: Minutes Onset/Duration: Minutes Severity Initially: Mild Severity Currently: Mild Pain Intensity: 8 Pain Scale Used: 0-10 Numeric Timing: Constant Location: Is Discrete @ - right vomiting knee pain Character Of Pain: Aching Associated Signs And Symptoms: Negative: Swelling, Redness, Bruising, Weakness Aggravating Factor(s): Standing, Ambulation Alleviating Factor(s): Rest Able to Bear Weight: No - Risk Factors Gout Risk Factors: Negative DVT Risk Factors: Negative - Allergies/Home Medications Allergies/Adverse Reactions: Allergies Allergy/AdvReac Type Severity Reaction Status Date / Time No Known Allergies Allergy Verified 06/27/18 16:49 Home Medications: Home Medications NK [No Home Medications Reported] 04/29/19 [History Confirmed 04/29/19] PMH/Surg Hx/FS Hx/Imm Hx Previously Healthy: Yes Endocrine/Hematology History: Denies: Hx Anticoagulant Therapy, Hx Diabetes, Hx Thyroid Disease Cardiovascular History: Denies: Hx Hypertension Respiratory History: Denies: Hx Asthma, Hx Chronic Obstructive Pulmonary Disease (COPD), Hx Lung Cancer, Hx Pneumonia, Hx Pulmonary Embolism GI History: Denies: Hx Gall Bladder Disease, Hx Gastrointestinal Bleed, Hx Ulcer, Hx Urosepsis History: Denies: Hx Kidney Stones, Hx Renal Disease Neurological History: Denies: Hx Dementia, Hx Migraine, Hx Seizures, Hx Transient Ischemic Attacks (TIA) Psychiatric History: Reports: Hx Anxiety, Hx Depression Denies: Hx Schizophrenia, Hx Bipolar Disorder - Cancer History Cancer Type, Location and Year: None reported - Surgical History Surgery Procedure, Year, and Place: Appendectomy - Immunization History Hx Pertussis Vaccination: No Immunizations Up to Date: Yes Infectious Disease History: No Infectious Disease History: Reports: Hx of Known/Suspected MRSA Denies: Hx Clostridium Difficile, Hx Hepatitis, Hx Human Immunodeficiency Virus (HIV), Traveled Outside the [place] in Last 30 Days - Family History Known Family History: Positive: Cardiac Disease, Hypertension - Social History Occupation: Unemployed Lives: Alone - homeless Alcohol Use: Rare Hx Substance Use: No Substance Use Type: Reports: None Substance Use Comment - Amount & Last Used: hx Crack cocaine Smoking Status (MU): Heavy Every Day Tobacco Smoker Type: Cigars Amount Used/How Often: 1 cigar/day Review of Systems Negative: Fever, Chills, Fatigue, Skin Diaphoresis Negative: Palpitations, Chest Pain Negative: Shortness Of Breath, Cough Genitourinary: Negative Positive: no symptoms reported, see HPI Negative: Rash, Bruising Neurological: Negative All Other Systems Reviewed And Are Negative: Yes Physical Exam Triage Information Reviewed: Yes Vital Signs On Initial Exam: Initial Vitals Temp Pulse Resp BP Pulse Ox 98.6 F 120 16 134/95 98 04/29/19 13:48 04/29/19 13:48 04/29/19 13:48 04/29/19 13:48 04/29/19 13:48 Vital Signs Reviewed: Yes Appearance: Positive: Well-Appearing, Well-Nourished Skin: Positive: Warm, Skin Color Reflects Adequate Perfusion Head/Face: Positive: Normal Head/Face Inspection Eyes: Positive: EOMI, RAND, Conjunctiva Clear Neck: Positive: Supple, No Lymphadenopathy Respiratory/Lung Sounds: Positive: Clear to Auscultation, Breath Sounds Present Cardiovascular: Positive: RRR, Pulses are Symmetrical in both Upper and Lower Extremities Musculoskeletal: Positive: Pain @ - right knee pain Neurological: Positive: Speech Normal Procedures - Sedation Patient Received Moderate/Deep Sedation with Procedure: No Diagnostics - Vital Signs Vital Signs Temp Pulse Resp BP Pulse Ox 04/29/19 15:57 98.1 F 103 18 117/89 100 04/29/19 13:48 98.6 F 120 16 134/95 98 - Laboratory Lab Statement: Any lab studies that have been ordered have been reviewed, and results considered in the medical decision making process. Lower Extremity Course/Dx - Course Course Of Treatment: Pt evaluated for request for MD note to get out of group today d/t his chronic knee pain. For his pain today, I have offered tylenol or ibuprofen, however he declines. He is not given a note. I have offered ortho f /u consult, be he states he will not go. He is dc in good condition with dx of chronic knee pain. - Diagnoses Provider Diagnoses: Right knee pain Discharge ED - Sign-Out/Discharge Documenting (check all that apply): Patient Departure - Discharge Plan Condition: Stable Disposition: HOME Referrals: Vivien Chakraborty MD [Medical Doctor] - No Primary Care Phys,NOPCP [Primary Care Provider] - Additional Instructions: Please follow up with Dr. Chakraborty regarding your knee pain Continue with ibuprofen and tylenol as needed for pain - Billing Disposition and Condition Condition: STABLE Disposition: Home
== END 2019-04-29 15:57 | disposition home or self-care (01) ==
LOC: ED 13:45
DX: M25.561 Pain in right knee (principal); G89.29 Other chronic pain; F17.290 Nicotine dependence, other tobacco product, uncomplicated; Z59.0 Homelessness
CPT/HCPCS: 99281

== ENCOUNTER 2019-05-12 17:51 | Emergency (ER) | payer SELFPAY ==
--- NOTE | 2019-05-12 18:45 | ED ---
Medical Screening - HPI Summary HPI Summary: 33-year-old male presents with back pain for the past couple days. He states he slipped and fell on his back and also twisted his knee. He states that he had to call off a work and is requesting a work note. He came in essentially only for work note. He also having diarrhea. No urinary symptoms. No fevers. He states he just feels ill. - History of Current Complaint Chief Complaint: EDGeneral Stated Complaint: FLU-LIKE SYMPTOMS PER PT Time Seen by Provider: 05/12/19 18:35 PMH/Surg Hx/FS Hx/Imm Hx Endocrine/Hematology History: Denies: Hx Anticoagulant Therapy, Hx Diabetes, Hx Thyroid Disease Cardiovascular History: Denies: Hx Hypertension Respiratory History: Denies: Hx Asthma, Hx Chronic Obstructive Pulmonary Disease (COPD), Hx Lung Cancer, Hx Pneumonia, Hx Pulmonary Embolism GI History: Denies: Hx Gall Bladder Disease, Hx Gastrointestinal Bleed, Hx Ulcer, Hx Urosepsis History: Denies: Hx Kidney Stones, Hx Renal Disease Neurological History: Denies: Hx Dementia, Hx Migraine, Hx Seizures, Hx Transient Ischemic Attacks (TIA) Psychiatric History: Reports: Hx Anxiety, Hx Depression Denies: Hx Schizophrenia, Hx Bipolar Disorder - Cancer History Cancer Type, Location and Year: None reported - Surgical History Surgery Procedure, Year, and Place: Appendectomy Infectious Disease History: No Infectious Disease History: Reports: Hx of Known/Suspected MRSA Denies: Hx Clostridium Difficile, Hx Hepatitis, Hx Human Immunodeficiency Virus (HIV), Traveled Outside the [place] in Last 30 Days - Family History Known Family History: Positive: Cardiac Disease, Hypertension - Social History Alcohol Use: Rare Hx Substance Use: No Substance Use Type: Reports: None Substance Use Comment - Amount & Last Used: hx Crack cocaine Smoking Status (MU): Heavy Every Day Tobacco Smoker Type: Cigars Amount Used/How Often: 1 cigar/day Review of Systems Negative: Fever Negative: Chest Pain Negative: Shortness Of Breath Positive: Diarrhea Positive: Myalgia - back pain All Other Systems Reviewed And Are Negative: Yes Physical Exam Triage Information Reviewed: Yes Vital Signs On Initial Exam: Initial Vitals Temp Pulse Resp BP Pulse Ox 97.5 F 95 16 135/85 99 05/12/19 17:53 05/12/19 17:53 05/12/19 17:53 05/12/19 17:53 05/12/19 17:53 Vital Signs Reviewed: Yes Appearance: Positive: Well-Appearing Skin: Positive: Warm, Dry Head/Face: Positive: Normal Head/Face Inspection Eyes: Positive: Normal, Conjunctiva Clear ENT: Positive: Pharynx normal Respiratory/Lung Sounds: Positive: Clear to Auscultation, Breath Sounds Present Cardiovascular: Positive: Normal, RRR Musculoskeletal: Positive: Strength/ROM Intact - back, Other - tenderness right lower back Neurological: Positive: Normal, Normal Gait Psychiatric: Positive: Normal Procedures - Sedation Patient Received Moderate/Deep Sedation with Procedure: No Diagnostics - Vital Signs Vital Signs Temp Pulse Resp BP Pulse Ox 05/12/19 17:53 97.5 F 95 16 135/85 99 - Laboratory Lab Statement: Any lab studies that have been ordered have been reviewed, and results considered in the medical decision making process. Course/Dx - Course Course Of Treatment: 33-year-old male presents with back pain for the past couple days. He states he slipped and fell on his back and also twisted his knee. He states that he had to call off a work and is requesting a work note. He came in essentially only for work note. He also having diarrhea. No urinary symptoms. No fevers. He states he just feels ill. On exam lungs clear to auscultation. Tenderness lower back but no midline tenderness. Neurovascular intact. Gave a work note. We'll treat supportively. Patient understands agrees plan. - Diagnoses Provider Diagnoses: Encounter for medical screening examination, Back pain Discharge ED - Sign-Out/Discharge Documenting (check all that apply): Patient Departure - Discharge Plan Condition: Good Disposition: HOME Patient Education Materials: Back Pain (ED) Forms: *Work Release Referrals: [facility] [Outside] Additional Instructions: a referral was given for primary ice or heat to back take tyenlol or ibuprofen for pain as needed every 6 hours Return to ED if develop any new or worsening symptoms - Billing Disposition and Condition Condition: GOOD Disposition: Home - Attestation Statements Provider Attestation: I was available for consultation for this patient. I did not evaluate the patient or participate in any medical decision making or disposition decisions unless I am specifically named in the chart as having consulted on the patient. If I have consulted on the patient, please see my own ED note on the patient encounter. Francisco Isaac MD
[2019-05-12 18:57] VITALS: BP 133/81
== END 2019-05-12 18:51 | disposition home or self-care (01) ==
LOC: ED 17:51
DX: M54.9 Dorsalgia, unspecified (principal); F41.9 Anxiety disorder, unspecified; F32.9 Major depressive disorder, single episode, unspecified; F17.290 Nicotine dependence, other tobacco product, uncomplicated
CPT/HCPCS: 99281

== ENCOUNTER 2019-06-02 13:35 | Emergency (ER) | payer SELFPAY ==
--- NOTE | 2019-06-02 14:32 | ED ---
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 Patient says he had 2 bouts of diarrhea this morning and has been nauseous and vomiting. He states his abdominal pain is a 7 out of 10 diffuse pain in his entire abdomen and nothing makes it better. She denies blood per rectum. He says his appointment was at 8:30 this morning but accidentally fell asleep on a park bench this afternoon and was unable to attend because he was not feeling well. He denies fever, chills, chest pain, pain in urination, joint pain. - History of Current Complaint Chief Complaint: EDPrescriptionNeeded Stated Complaint: GENERAL ILLNESS PER PT Time Seen by Provider: 06/02/19 13:59 Hx Obtained From: Patient Onset/Duration: Sudden Onset Timing: Constant Severity Currently: None Pain Intensity: 0 Pain Scale Used: 0-10 Numeric Location: Diffuse Character: Dull Aggravating Factor(s): Food, Movement Alleviating Factor(s): Nothing Nausea/Vomiting Presence: Nauseated Vomiting Frequency: Daily Nausea/Vomiting Duration: 0-12 hours Diarrhea Presence: Yes Diarrhea Frequency: Daily Diarrhea Duration: 0-12 hours - Allergies/Home Medications Allergies/Adverse Reactions: Allergies Allergy/AdvReac Type Severity Reaction Status Date / Time No Known Allergies Allergy Verified 06/02/19 13:56 PMH/Surg Hx/FS Hx/Imm Hx Endocrine/Hematology History: Denies: Hx Anticoagulant Therapy, Hx Diabetes, Hx Thyroid Disease Cardiovascular History: Denies: Hx Hypertension Respiratory History: Denies: Hx Asthma, Hx Chronic Obstructive Pulmonary Disease (COPD), Hx Lung Cancer, Hx Pneumonia, Hx Pulmonary Embolism GI History: Denies: Hx Gall Bladder Disease, Hx Gastrointestinal Bleed, Hx Ulcer, Hx Urosepsis History: Denies: Hx Kidney Stones, Hx Renal Disease Neurological History: Denies: Hx Dementia, Hx Migraine, Hx Seizures, Hx Transient Ischemic Attacks (TIA) Psychiatric History: Reports: Hx Anxiety, Hx Depression Denies: Hx Schizophrenia, Hx Bipolar Disorder - Cancer History Cancer Type, Location and Year: None reported - Surgical History Surgery Procedure, Year, and Place: Appendectomy Infectious Disease History: No Infectious Disease History: Reports: Hx of Known/Suspected MRSA Denies: Hx Clostridium Difficile, Hx Hepatitis, Hx Human Immunodeficiency Virus (HIV), Traveled Outside the [place] in Last 30 Days - Family History Known Family History: Positive: Cardiac Disease, Hypertension - Social History Alcohol Use: Rare Hx Substance Use: No Substance Use Type: Reports: Marijuana Substance Use Comment - Amount & Last Used: hx Crack cocaine Smoking Status (MU): Heavy Every Day Tobacco Smoker Type: Cigars Amount Used/How Often: 1 cigar/day Review of Systems Constitutional: Negative Cardiovascular: Negative Respiratory: Negative Positive: Abdominal Pain, Vomiting, Diarrhea, Nausea Genitourinary: Negative Musculoskeletal: Negative Skin: Negative Positive: Anxious All Other Systems Reviewed And Are Negative: Yes Physical Exam Triage Information Reviewed: Yes Vital Signs On Initial Exam: Initial Vitals Temp Pulse Resp BP Pulse Ox 98.5 F 113 16 120/95 99 06/02/19 13:50 06/02/19 13:50 06/02/19 13:50 06/02/19 13:50 06/02/19 13:50 Vital Signs Reviewed: Yes Appearance: Positive: Well-Appearing, No Pain Distress, Well-Nourished Skin: Positive: Warm, Skin Color Reflects Adequate Perfusion Head/Face: Positive: Normal Head/Face Inspection Eyes: Positive: Normal, EOMI ENT: Positive: Normal ENT inspection, Hearing grossly normal Respiratory/Lung Sounds: Positive: Clear to Auscultation, Breath Sounds Present Cardiovascular: Positive: Normal, RRR, S1, S2 Abdomen Description: Positive: No Organomegaly, Soft, Guarding, Other: - Diffuse pain with very light palpation throughout the entire abdomen. Negative psoas, Rovsing, obturator, Liriano sign noted tenderness at McBurney's point.. Negative: Bruit, CVA Tenderness (R), CVA Tenderness (L), Distended, Hernia @, Peritoneal Signs, Pulsatile Mass Bowel Sounds: Positive: Present - Normoactive Musculoskeletal: Positive: Strength/ROM Intact Neurological: Positive: Sensory/Motor Intact, Alert, Oriented to Person Place, Time Psychiatric: Positive: Normal AVPU Assessment: Alert Procedures - Sedation Patient Received Moderate/Deep Sedation with Procedure: No Diagnostics - Vital Signs Vital Signs Temp Pulse Resp BP Pulse Ox 06/02/19 13:50 98.5 F 113 16 120/95 99 - Laboratory Lab Statement: Any lab studies that have been ordered have been reviewed, and results considered in the medical decision making process. Naus/Vom/Diarrhea Course/Dx - Course Course Of Treatment: This patient was evaluated in the emergency department for complaint of nausea, vomiting, diarrhea. The patient was seen and examined. It was determined that he did not require any laboratory or radiological studies. His physical exam was unremarkable for any acute pathology and the patient's vital signs were stable with no signs of fever. His symptoms will resolve on their own shortly. He was given a prescription for Zofran for nausea and instructed to increase fluid intake to stay hydrated. He was informed to return to the emergency department if his symptoms worsen or if he develops new symptoms. - Differential Dx/Diagnosis Differential Diagnoses - Male: Bowel Obstruction, Constipation, Irritable Bowel Syndrome, Vomiting, Diarrhea Provider Diagnosis: Nausea, Abdominal pain Condition At Discharge: Stable Discharge ED - Sign-Out/Discharge Documenting (check all that apply): Patient Departure - Discharge Plan Condition: Stable Disposition: HOME Prescriptions: Ondansetron ODT TAB* [Zofran 4 MG Odt TAB*] 4 mg PO Q6H PRN #12 tab.odt PRN Reason: Nausea Patient Education Materials: Acute Nausea and Vomiting (ED) Referrals: [facility] [Outside] - 2 Days No Primary Care Phys,NOPCP [Primary Care Provider] - Additional Instructions: You were seen in the emergency department today for nausea, vomiting and diarrhea. It is determined that the etiology of this is most likely not infectious. I prescribed Zofran which may to be taken every 4 hours for nausea and for relief of your symptoms. your symptoms will resolve on their own in the next 5 days. It is important that you maintain adequate hydration and food intake. If your symptoms worsen or you develop any new symptoms please return to the emergency Department immediately. It Appears you have no primary care provider so I will attach information for you to go see one of our [facility] providers for follow-up. Please be seen within the next 2-3 days. - Billing Disposition and Condition Condition: STABLE Disposition: Home - Attestation Statements Provider Attestation: I was available for consult. This patient was seen by the FELA. The patient was not presented to, seen by, or examined by me. -
[2019-06-02 14:46] VITALS: BP 120/77
== END 2019-06-02 14:40 | disposition home or self-care (01) ==
LOC: ED 13:35
DX: R10.84 Generalized abdominal pain (principal); R11.2 Nausea with vomiting, unspecified; R19.7 Diarrhea, unspecified; F17.290 Nicotine dependence, other tobacco product, uncomplicated
CPT/HCPCS: 99282

== ENCOUNTER 2019-08-02 13:38 | Emergency (ER) | payer SELFPAY ==
[2019-08-02] MEDS ORDERED: Tetan/Diph/Pertus SYR(Tdap)* 0.5 ML SYR(BOOSTRIX) use SYR contains LATEX IM ONE (14:35)
--- NOTE | 2019-08-02 14:39 | ED ---
Adult Trauma - HPI Summary HPI Summary: This pt is a 33 Y/O M presenting to [facility] with a CC of a fall that occurred last night at 0200. He states that he fell onto his left wrist and right shoulder. patient is unsure of loss of consciousness, thinks he passed out following the accident due to seeing his own blood. He states that he has pain and his R shoulder, L wrist and hand, and his head. He states that the is unable to lay back on his R shoulder. He states that he has a headache that has persisted since the accident, that is now resolved. He rated his pain a 6/10 in severity. He denies any N/V, SOB, and CP. He has no alleviating factors. He has no pertinent PMHx. Patient unsure of last tetanus shot. - History of Current Complaint Chief Complaint: EDFall Stated Complaint: FELL/LEFT ARM AND BACK INJURY PER PT Time Seen by Provider: 08/02/19 14:08 Hx Obtained From: Patient Mechanism of Injury: Fall Ambulatory at the Scene: Yes Loss of Consciousness: unsure Onset/Duration: Started Hours Ago - 12, Still Present Onset of Pain: Immediate Onset Severity: Moderate Current Severity: Moderate Pain Intensity: 6 Pain Scale Used: 0-10 Numeric Location: Head, Back - R shoulder blade, Other - L forearm/wrist/hand Aggravating Factor(s): Other - lying on his R shoulder blade Alleviating Factor(s): Nothing Associated Signs & Symptoms: Positive: Other: - L wrist and hand pain, R shoulder/back pain. Negative: SOB, Chest Pain, Nausea/Vomiting - Allergy/Home Medications Allergies/Adverse Reactions: Allergies Allergy/AdvReac Type Severity Reaction Status Date / Time No Known Allergies Allergy Verified 08/02/19 13:45 PMH/Surg Hx/FS Hx/Imm Hx Previously Healthy: Yes Endocrine/Hematology History: Denies: Hx Anticoagulant Therapy, Hx Diabetes, Hx Thyroid Disease Cardiovascular History: Denies: Hx Hypertension Respiratory History: Denies: Hx Asthma, Hx Chronic Obstructive Pulmonary Disease (COPD), Hx Lung Cancer, Hx Pneumonia, Hx Pulmonary Embolism GI History: Denies: Hx Gall Bladder Disease, Hx Gastrointestinal Bleed, Hx Ulcer, Hx Urosepsis History: Denies: Hx Kidney Stones, Hx Renal Disease Neurological History: Denies: Hx Dementia, Hx Migraine, Hx Seizures, Hx Transient Ischemic Attacks (TIA) Psychiatric History: Reports: Hx Anxiety, Hx Depression Denies: Hx Schizophrenia, Hx Bipolar Disorder - Cancer History Cancer Type, Location and Year: None reported - Surgical History Surgery Procedure, Year, and Place: Appendectomy Infectious Disease History: No Infectious Disease History: Reports: Hx of Known/Suspected MRSA Denies: Hx Clostridium Difficile, Hx Hepatitis, Hx Human Immunodeficiency Virus (HIV), Traveled Outside the [place] in Last 30 Days - Family History Known Family History: Positive: Cardiac Disease, Hypertension - Social History Occupation: Employed Full-time Lives: Alone Alcohol Use: Rare Hx Substance Use: No Substance Use Type: Reports: None Substance Use Comment - Amount & Last Used: hx Crack cocaine Smoking Status (MU): Heavy Every Day Tobacco Smoker Type: Cigars Amount Used/How Often: 1 cigar/day Review of Systems Negative: Chest Pain Negative: Shortness Of Breath Negative: Vomiting, Nausea Neurological: Other - R shoulder/back pain. L wrist/hand pain All Other Systems Reviewed And Are Negative: Yes Physical Exam - Summary Physical Exam Summary: Constitutional: Well-developed, Well-nourished, Alert. (-) Distressed Skin: Warm, Dry, abrasions to his L wrist, R hand and L hand HENT: Normocephalic; Atraumatic Eyes: Conjunctiva normal Neck: Musculoskeletal ROM normal neck. (-) JVD, (-) Stridor, (-) Nuchal rigidity , No midline cervical spinal tenderness. Cardio: Rhythm regular, rate normal, Heart sounds normal; Intact distal pulses; Radial pulses are 2+ and symmetric. (-) Murmur Pulmonary/Chest wall: Effort normal. (-) Respiratory distress, (-) Wheezes, (-) Rales Abd: Soft, (-) tenderness, (-) Distension, (-) Guarding, (-) Rebound Musculoskeletal: (-) Edema. tenderness of the distal dorsal left wrist, no snuffbox tenderness. Tenderness of the posterior shoulder with full range of motion. No thoracic or lumbar tenderness. No chest wall tenderness Neuro: Alert, Oriented x3 Psych: Mood and affect Normal GCS: 15 Triage Information Reviewed: Yes Vital Signs On Initial Exam: Initial Vitals Temp Pulse Resp BP Pulse Ox 97 F 117 18 114/89 100 08/02/19 13:41 08/02/19 13:41 08/02/19 13:41 08/02/19 13:41 08/02/19 13:41 Vital Signs Reviewed: Yes Procedures - Sedation Patient Received Moderate/Deep Sedation with Procedure: No Diagnostics - Vital Signs Vital Signs Temp Pulse Resp BP Pulse Ox 08/02/19 13:41 97 F 117 18 114/89 100 - Laboratory Lab Statement: Any lab studies that have been ordered have been reviewed, and results considered in the medical decision making process. - Radiology Hand x-ray Radiology Interpretation Completed By: Radiologist Summary of Radiographic Findings: Probable osteochondroma arising from the midshaft of the third metacarpal. ED physician has reviewed this report. Wrist x-ray Radiology Interpretation Completed By: Radiologist Summary of Radiographic Findings: #. Soft tissue swelling most prominent over the dorsal aspect of the distal forearm. #. No cortical disruption or suspicious trabecular irregularity to suggest acute fracture. Probable healed fracture at the diaphysis of the third metacarpal. #. Normal articular alignment and preserved joint spaces. ED physicain has reviewed this report. Re-Evaluation - Re-Evaluation First Eval Re-Evaluation Time: 15:50 Change: Improved - xr w/o acute fractures. Patient declined shoulder x-rays. Patient still declines CT of the head. Patient was given Motrin and Tylenol for pain. Heart rate down to 93. Adult Trauma Course/Dx - Course Course Of Treatment: 33-year-old male presents after mechanical fall with left wrist, right shoulder pain, and headache ( now resolved). - GCS 15. Abrasions to the wrists. Tenderness of the distal left wrist, no snuffbox tenderness. Tenderness of the right shoulder with full range of motion. No cervical spine tenderness. - Tetanus updated. Wounds were cleaned. X-rays of the wrist/hand do not show any acute fracture. Patient declined x-ray the shoulder. Patient also declines CT of the head. GCS is 15, focal neuro deficits. Patient given Tylenol Motrin for pain - Diagnoses Provider Diagnoses: Hand pain, Shoulder pain, right, Wrist pain, Concussion Discharge ED - Sign-Out/Discharge Documenting (check all that apply): Patient Departure - discharge - Discharge Plan Condition: Stable Disposition: HOME Patient Education Materials: Wrist Injury (ED), Concussion (ED), Shoulder Pain (ED) Referrals: [facility] [Outside] - 2 Days Additional Instructions: You were seen in the emergency department for hand and wrist pain after fall. Your x-rays did not show any acute fractures, you have a possible osteochondroma which is a benign bony tumor of your third finger versus an old fracture. Please follow [facility] with [facility] in next 2-3 days and return to emergency department for headaches, confusion, worsening pain, worsening or concerning symptoms. It was a pleasure taking care of you today. - Billing Disposition and Condition Condition: STABLE Disposition: Home - Attestation Statements Document Initiated by Aida: Yes Documenting Scribe: Earnest Mathur Provider For Whom Aida is Documenting (Include Credential): Francisco Isaac MD Scribe Attestation: I, Earnest Mathur, scribed for Francisco Isaac MD on 08/02/19 at 1605. Scribe Documentation Reviewed: Yes Provider Attestation: The documentation as recorded by the Earnest walden accurately reflects the service I personally performed and the decisions made by me, Francisco Isaac MD Status of Scribe Document: Viewed
[2019-08-02] MEDS ORDERED: Ibuprofen TAB* 600 MG PO ONE (15:33)
[2019-08-02] MEDS ORDERED: Acetaminophen TAB* 325 MG PO ONE (15:33)
[2019-08-02 16:04] VITALS: BP 142/89
== END 2019-08-02 15:55 | disposition home or self-care (01) ==
LOC: ED 13:38
DX: S06.0X9A Concussion with loss of consciousness of unspecified duration, initial encounter (principal); M79.641 Pain in right hand; M25.531 Pain in right wrist; M25.511 Pain in right shoulder; W19.XXXA Unspecified fall, initial encounter; Y92.9 Unspecified place or not applicable; F17.210 Nicotine dependence, cigarettes, uncomplicated
CPT/HCPCS: 90471; 90715; 99282; A9270-GY

== ENCOUNTER 2019-08-24 22:13 | Emergency (ER) | payer SELFPAY ==
--- NOTE | 2019-08-24 22:19 | ED ---
Psychiatric Complaint - HPI Summary HPI Summary: 33 year old M brought in by EMS to [facility] accompanied by law enforcement on 941 complains of suicidal ideation since today 08/24/2019. Patient denies suicidal ideation currently. Hx depression/anxiety. No hx suicidal attempts. Patient is not on any psychiatric medications. Sees therapist Linda at [facility]. Denies recreational drug use. No drugs today. Admits to drinking 1 beer today. - History Of Current Complaint Time Seen by Provider: 08/24/19 22:14 Hx Obtained From: Patient Onset/Duration: Lasting Hours, Still Present Severity Currently: None Aggravating Factor(s): Nothing Alleviating Factor(s): Nothing Has Suicidal: Reports: Thoughts - Allergies/Home Medications Allergies/Adverse Reactions: Allergies Allergy/AdvReac Type Severity Reaction Status Date / Time No Known Allergies Allergy Verified 08/02/19 13:45 PMH/Surg Hx/FS Hx/Imm Hx Endocrine/Hematology History: Denies: Hx Anticoagulant Therapy, Hx Diabetes, Hx Thyroid Disease Cardiovascular History: Denies: Hx Hypertension Respiratory History: Denies: Hx Asthma, Hx Chronic Obstructive Pulmonary Disease (COPD), Hx Lung Cancer, Hx Pneumonia, Hx Pulmonary Embolism GI History: Denies: Hx Gall Bladder Disease, Hx Gastrointestinal Bleed, Hx Ulcer, Hx Urosepsis History: Denies: Hx Kidney Stones, Hx Renal Disease Neurological History: Denies: Hx Dementia, Hx Migraine, Hx Seizures, Hx Transient Ischemic Attacks (TIA) Psychiatric History: Reports: Hx Anxiety, Hx Depression Denies: Hx Schizophrenia, Hx Bipolar Disorder - Cancer History Cancer Type, Location and Year: None reported - Surgical History Surgery Procedure, Year, and Place: Appendectomy Infectious Disease History: Reports: Hx of Known/Suspected MRSA Denies: Hx Clostridium Difficile, Hx Hepatitis, Hx Human Immunodeficiency Virus (HIV) - Family History Known Family History: Positive: Cardiac Disease, Hypertension - Social History Alcohol Use: Rare Hx Substance Use: Yes Substance Use Comment - Amount & Last Used: hx Crack cocaine Hx Tobacco Use: Yes Smoking Status (MU): Heavy Every Day Tobacco Smoker Type: Cigars Amount Used/How Often: 1 cigar/day Review of Systems Positive: Other - consuming 1 beer Positive: Other - suicidal ideation All Other Systems Reviewed And Are Negative: Yes Physical Exam - Summary Physical Exam Summary: Appearance: Well-appearing, Well-nourished, lying in bed comfortable Skin: Warm, dry, no obvious rash Eyes: sclera anicteric, no conjunctival pallor ENT: mucous membranes moist Neck: deferred Respiratory: No signs of respiratory distress Cardiovascular: Appears well perfused, pulses are nml Abdomen: deferred Musculoskeletal: Moving all 4 extremities without obvious discomfort Neurological: Awake and alert, mentation is normal, speech is fluent and appropriate Psychiatric: affect is normal, does not appear anxious or depressed Triage Information Reviewed: Yes Vital Signs Reviewed: Yes Procedures - Sedation Patient Received Moderate/Deep Sedation with Procedure: No Diagnostics - Laboratory Result Diagrams: 08/24/19 23:02 08/24/19 23:02 Lab Statement: Any lab studies that have been ordered have been reviewed, and results considered in the medical decision making process. Re-Evaluation - Re-Evaluation First Eval Re-Evaluation Time: 23:42 Comment: patient is medically cleared for MHE Course/Dx - Course Course Of Treatment: 33 y/o M brought in by EMS accompanied by law enforcement on 941 complains of suicidal ideation since today 08/24/2019. Patient denies suicidal ideation currently. Hx depression/anxiety. No hx suicidal attempts. Not on any psychiatric medications. Sees therapist at [facility]. Physical exam unremarkable. Bloodwork results with no significant abnormalities except for WBC 11.6, absolute neuts 10.5, absolute lymphs 0.7, glucose 119. Toxicology results with no significant abnormalities except for cocaine and cannabinoids. Patient will be signed out to Dr. Huber upon shift change 08/25/2019 0700 pending psychiatric evaluation and disposition. - Differential Dx/Clinical Impression Provider Diagnosis: Anxiety, Schizoaffective disorder, chronic condition Discharge ED - Sign-Out/Discharge Documenting (check all that apply): Sign-Out Patient Signing out patient TO: Elan Huber - Discharge Plan Condition: Stable Disposition: HOME Referrals: No Primary Care Phys,NOPCP [Primary Care Provider] - - Billing Disposition and Condition Condition: STABLE Disposition: Home - Attestation Statements Document Initiated by Scribe: Yes Documenting Scribe: Arcelia Rushing Provider For Whom Aida is Documenting (Include Credential): Hugh Middleton MD Scribe Attestation: Arcelia Matt scribed for Hugh Middleton MD on 08/26/19 at 0506. Scribe Documentation Reviewed: Yes Provider Attestation: The documentation as recorded by the scribe, Arcelia Rushing accurately reflects the service I personally performed and the decisions made by me, Hugh Middleton MD Status of Aida Document: Viewed
--- OUTSIDE RECORDS SUMMARY | 2019-08-24 22:51 | XMS REPORT ---
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 depressed mood Adjustment [id number] SNOMED-CT 2018-07 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 anxiety Relevant diagnostic tests/laboratory data Narrative No Information Procedures Procedure Code CodeSystem Target Date of Status Service Device Device Device Name Site Procedure Delivery Code Name UID Location SNOMED-CT () 2019-05-[address], [id number] Psychother [id number] SNOMED-CT () 2019-07-07 completed Mental [facility], 45 4 Health- minutes [facility] with [facility] patient [address] [place] [address], [id number] SNOMED-CT () 2019-07-[address], [id number] SNOMED-CT () 2019-08-[address], [id number] SNOMED-CT () 2019-08-[address], [id number] Encounters/Encounter Diagnoses Encounter Name Encounter Diagnosis Diagnosis Diagnosis Date of Service Code Code Name CodeSystem Diagnosis Delivery Location Psychotherapy 87520 SNOMED-CT 2019-08-10 Behavioral [facility] [address], [place], [phone] Vital Signs No Information Social History Element Description Description Start End Code CodeSystem AdditionalInfo Date Date SexAssignedAtBirth Male 1985-0 M AdministrativeGender 12-27 Hospital Discharge Instructions Reason For Referral Medical Equipment FDA Assessments
--- OUTSIDE RECORDS SUMMARY | 2019-08-24 22:51 | XMS REPORT ---
:1985 Author Organization [facility] Care Team Providers Name Role Phone ROCAELRHIANNON Primary Care Physician Unavailable Allergies, Adverse Reactions, Alerts Allergy Code CodeSystem Reaction Severity Criticality Status Start Substance Date Moderate Medications Medication Medication Medication Start Stop Route Dose Status Fill Code CodeSystem Date Date Instructions RxNorm Problems Problem Name Code CodeSystem Alternate Alternate Start End Status Narrative Code CodeSystem Date Date Adjustment 72731416 SNOMED-CT 2018-07 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 anxiety Adjustment [id number] SNOMED-CT 2018-07 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 depressed mood Relevant diagnostic tests/laboratory data Narrative No Information Procedures Procedure Code CodeSystem Target Date of Status Service Device Device Device Name Site Procedure Delivery Code Name UID Location SNOMED-CT () 2019-05-[address], [id number] SNOMED-CT () 2019-07-[address], [id number] SNOMED-CT () 2019-08-[address], [id number] Psychother [id number] SNOMED-CT () 2019-07-07 completed Mental [facility], 45 4 Health- minutes [facility] with [facility] patient [address] [place] [address], [id number] [phone] Encounters/Encounter Diagnoses Encounter Name Encounter Diagnosis Diagnosis Diagnosis Date of Service Code Code Name CodeSystem Diagnosis Delivery Location Psychotherapy - 01792 SNOMED-CT 2019-08-10 Behavioral [facility] , , , Vital Signs No Information Social History Element Description Description Start End Code CodeSystem AdditionalInfo Date Date SexAssignedAtBirth Male 1986-0 M AdministrativeGender 12-27 Hospital Discharge Instructions Reason For Referral Medical Equipment FDA Assessments
--- OUTSIDE RECORDS SUMMARY | 2019-08-24 22:51 | XMS REPORT ---
:1985 Author Organization [facility] Care Team Providers Name Role Phone RHIANNON COTE Primary Care Physician Unavailable Allergies, Adverse Reactions, Alerts Allergy Code CodeSystem Reaction Severity Criticality Status Start Substance Date Moderate Medications Medication Medication Medication Start Stop Route Dose Status Fill Code CodeSystem Date Date Instructions RxNorm Problems Problem Name Code CodeSystem Alternate Alternate Start End Status Narrative Code CodeSystem Date Date Adjustment 10102847 SNOMED-CT 2018-07 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 anxiety Adjustment 70400256 SNOMED-CT 2018-07 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 depressed mood Relevant diagnostic tests/laboratory data Narrative No Information Procedures Procedure Code CodeSystem Target Date of Status Service Device Device Device Name Site Procedure Delivery Code Name UID Location Psychother [id number] SNOMED-CT () 2019-07-07 completed Mental [facility], 45 4 Health- minutes [facility] with [facility] patient [address] [place] [address], [id number] [id number] SNOMED-CT () 2019-05-[address], [id number] SNOMED-CT () 2019-07-[address], [id number] Encounters/Encounter Diagnoses Encounter Name Encounter Diagnosis Diagnosis Diagnosis Date of Service Code Code Name CodeSystem Diagnosis Delivery Location Psychotherapy - 33301 SNOMED-CT 2019-08-10 Behavioral [facility] , , , Vital Signs No Information Social History Element Description Description Start End Code CodeSystem AdditionalInfo Date Date SexAssignedAtBirth Male 1985-0 M AdministrativeGender 12-27 Hospital Discharge Instructions Reason For Referral Medical Equipment FDA Assessments
[2019-08-24 23:09] LABS: ABS Lymphocytes 0.7 10^3/ul (1.0-4.8); ABS Monocytes 0.3 10^3/ul (0-0.8); ABS Neutrophils 10.5 10^3/ul (1.5-7.7); Hematocrit 43 % (42-52); Hemoglobin 14.7 g/dL (14.0-18.0); Lymphocyte % 6.4 %; Mean Corpuscular HGB Conc 35 g/dL (31-36); Mean Corpuscular Hemoglobin 31 pg (27-31); Mean Corpuscular Volume 89 fL (80-94); Mean Platelet Volume 9.2 fL (7.4-10.4); Nucleated Red Blood Cells % 0.1; Platelet Count 176 10^3/uL (150-450); Red Blood Count 4.83 10^6 /uL (4.18-5.48); Red Cell Distribution Width 14 % (10-15); White Blood Count 11.6 10^3/uL (3.5-10.8)
[2019-08-24 23:26] LABS: ALT 11 U/L (7-52); AST 15 U/L (13-39); Albumin 4.4 g/dL (3.2-5.2); Albumin/Globulin Ratio 1.9 (1-3); Alkaline Phosphatase 60 U/L (34-104); Anion Gap 7 mmol/L (2-11); BUN/Creatinine Ratio 16.4 (8-20); Blood Urea Nitrogen 12 mg/dL (6-24); CO2 Carbon Dioxide 26 mmol/L (22-32); Calcium 9.1 mg/dL (8.6-10.3); Chloride 104 mmol/L (101-111); EGFR African American 150.7 (>60); EGFR Non-African American 124.5 (>60); Globulin 2.3 g/dL (2-4); Glucose 119 mg/dL (70-100); Potassium 4.2 mmol/L (3.5-5.0); Sodium 137 mmol/L (135-145); Total Protein 6.7 g/dL (6.4-8.9)
[2019-08-24 23:27] LABS: Acetaminophen < 15 mcg/mL; Alcohol < 10 mg/dL (<10); Salicylate < 2.50 mg/dL (<30)
[2019-08-24 23:41] LABS: TSH (Thyroid Stimulating Horm) 0.54 mcIU/mL (0.34-5.60)
[2019-08-25 00:52] LABS: Urine Benzodiazepine Screen None Detected (None Detect); Urine Opiates Screen None Detected (None Detect)
[2019-08-25 01:15] LABS: Urine Appearance Clear; Urine Bilirubin Negative (Negative); Urine Blood Negative (Negative); Urine Color Yellow; Urine Glucose Negative (Negative); Urine Ketones Negative (Negative); Urine Nitrite Negative (Negative); Urine Protein Negative (Negative); Urine Specific Gravity 1.017 (1.010-1.030); Urine Urobilinogen Negative (Negative)
[2019-08-25] MEDS: Nicotine* 2MG (FRUIT FLAVOR) GUM PO PRN ×3 (02:32→08:47)
--- NOTE | 2019-08-25 07:03 | ED ---
Progress - Progress Note Progress Note: This patient was signed out from upon shift change on 08/25/2019 at 0700, pending MHE and disposition. 902 consult with : pt will be discharged. Schizoaffective disorder. 905 consult with MHE: pt has anxiety, NOS. He will be discharged and continue seeing his therapist. Pt will be discharged and continue seeing his therapist. Re-Evaluation - Re-Evaluation First Eval Re-Evaluation Time: 23:42 Comment: patient is medically cleared for MHE Course/Dx - Diagnoses Provider Diagnoses: Anxiety, Schizoaffective disorder, chronic condition Discharge ED - Sign-Out/Discharge Documenting (check all that apply): Patient Departure - discharge - Discharge Plan Condition: Stable Disposition: HOME - Billing Disposition and Condition Condition: STABLE Disposition: Home - Attestation Statements Document Initiated by Calliibe: Yes Documenting Scribe: Kelvin Grimaldo Provider For Whom Scribe is Documenting (Include Credential): Edenilson Huber DO Scribe Attestation: IKelvin scribed for Edenilson Huber DO on 08/25/19 at 1234. Scribe Documentation Reviewed: Yes Provider Attestation: The documentation as recorded by the calliibKelvin thomas accurately reflects the service I personally performed and the decisions made by me, Edenilson Huber DO Status of Scribwilliam Document: Viewed
[2019-08-25] MEDS ORDERED: Nicotine* 2MG (FRUIT FLAVOR) GUM PO PRN (08:44)
[2019-08-25 10:02] VITALS: BP 124/79
== END 2019-08-25 09:50 | disposition home or self-care (01) ==
LOC: ED 22:13
DX: R45.851 Suicidal ideations (principal); F41.9 Anxiety disorder, unspecified; F25.9 Schizoaffective disorder, unspecified; F17.290 Nicotine dependence, other tobacco product, uncomplicated
CPT/HCPCS: 36415; 80053; 80307; 80320; 80329; 81003; 84443; 85025; 99285; A9270-GY; G0480